=== PATIENT | male | born 1965 | race Hispanic/Latino ===

== ENCOUNTER 2016-06-15 12:23 | Outpatient (CLI) | payer OTHER ==
[2016-06-15] MEDS ORDERED: PROVENTIL IH ONE ×2 (12:34)
== END 2016-06-15 12:24 | disposition home or self-care (01) ==
LOC: PF 12:23
PROVIDERS: ATTEND Internal Medicine
DX: K62.5 Hemorrhage of anus and rectum (principal); R42 Dizziness and giddiness; R52 Pain, unspecified; R45.0 Nervousness; F43.29 Adjustment disorder with other symptoms
CPT/HCPCS: 94060; 94640